=== PATIENT | male | born 1985 | race American Indian/Alaskan Native ===

== ENCOUNTER 2017-03-18 18:04 | Emergency (ER) | payer OTHER ==
[2017-03-18] MEDS ORDERED: TYLENOL PO ONE (18:47)
[2017-03-18 19:21] LABS: Basophils % (Auto) 0.2 % (0.0-1.8); Hematocrit 40.1 % (35.5-45.6); Hemoglobin 13.5 gm/dl (11.8-15.2); Mean Corpuscular HGB Conc 34 % (32-34); Mean Corpuscular Hemoglobin 30 pg (28-32); Mean Corpuscular Volume 88 fl (84-94); Platelet Count 138 K/mm3 (140-440); Red Blood Count 4.57 M/mm3 (3.65-5.03); Red Cell Distribution Width 13.4 % (13.2-15.2); White Blood Count 9.2 K/mm3 (4.5-11.0)
[2017-03-18 19:32] LABS: Alanine Aminotransferase 26 units/L (7-56); Albumin/Globulin Ratio 0.9 %; Alkaline Phosphatase 58 units/L (35-129); Anion Gap 20 mmol/L; BUN/Creatinine Ratio 13.07; Blood Urea Nitrogen 17 mg/dL (9-20); Calcium 8.7 mg/dL (8.4-10.2); Carbon Dioxide 22 mmol/L (22-30); Glucose 112 mg/dL (75-100); Lipase 15 units/L (13-60); Potassium 3.7 mmol/L (3.6-5.0); Sodium 138 mmol/L (137-145); Total Protein 8.5 g/dL (6.3-8.2)
[2017-03-19] MEDS ORDERED: DILAUDID IV ONE ×2 (02:27→04:08)
[2017-03-19] MEDS ORDERED: TORADOL IV ONE (02:27)
[2017-03-19] MEDS ORDERED: ZOFRAN IV ONE (02:27)
[2017-03-19] MEDS ORDERED: NACL 0.9% 1000 ML 1,000 ML IV ONE ×2 (02:27→02:29)
--- NOTE | 2017-03-19 03:37 | Emergency Department Report ---
ED N/V/D HPI - General Chief complaint: Nausea/Vomiting/Diarrhea Stated complaint: N/V/D/CHILLS Time Seen by Provider: 03/19/17 01:58 Source: patient Mode of arrival: Ambulatory Limitations: No Limitations - History of Present Illness Initial comments: 31-year-old male with past medical history HIV/AIDS presents to the hospital complaints of nausea, vomiting, diarrhea, and generalized body aches for 3 days. Patient has not been able to eat or drink anything secondary symptoms. Denies abdominal pain. Patient is unsure of his CD4 count but does take antibodies prophylactically to prevent opportunistic infections (not bactrim). Patient is not currently on any HIV treatment but has a upcoming appointment with infectious disease Dr. Cano group to restart medication. Patient denies recent travel, sick contacts, hematochezia, hematemesis, melena, and did receive a flu test this season - Related Data Home Medications Medication Instructions Recorded Confirmed Last Taken Elvitegr/Cobicist/Emtric/Tenof 1 each PO DAILY 01/01/15 01/31/15 01/29/15 09:00 [Stribild Tablet] Azithromycin [Zithromax TAB] 600 mg PO QWEEK 01/31/15 01/31/15 01/26/15 09:00 Sulfamethoxazole/Trimethoprim 1 tab PO QDAY 01/31/15 01/31/15 01/26/15 09:00 [Bactrim DS] Previous Rx's Medication Instructions Recorded Last Taken Type HYDROcodone/APAP 5-325 [[place] 1 each PO Q6HR PRN #20 tablet 03/19/17 Unknown Rx 5/325] Ibuprofen [Motrin] 800 mg PO Q8HR PRN #30 tablet 03/19/17 Unknown Rx Nitrofurantoin [place]/M-Cryst 100 mg PO Q12HR #14 capsule 03/19/17 Unknown Rx [Macrobid CAP] Ondansetron [Zofran Odt] 4 mg PO Q8HR PRN #20 tab.rapdis 03/19/17 Unknown Rx Allergies Allergy/AdvReac Type Severity Reaction Status Date / Time morphine Allergy Vomiting Verified 01/31/15 08:35 ED Review of Systems ROS: Stated complaint: N/V/D/CHILLS Other details as noted in HPI Comment: All other systems reviewed and negative Other: Constitutional: As per HPI Eyes: No eye pain visual changes ENT: Dry mouth Neck: Denies pain Respiratory: Denies cough wheezing shortness of breath Cardiovascular: Denies chest pain, palpitations, syncope GI: As per HPI : Denies dysuria Musculoskeletal: Denies back pain, Skin: Denies rash, lesions, erythema Neurologic: Denies headache, numbness, weakness Psychiatric: Denies suicidal ideation, hallucinations ED Past Medical Hx - Past Medical History Hx HIV: Yes - Social History Smoking Status: Never Smoker Substance Use Type: Alcohol - Medications Home Medications: Home Medications Medication Instructions Recorded Confirmed Last Taken Type Elvitegr/Cobicist/Emtric/Tenof 1 each PO DAILY 01/01/15 01/31/15 01/29/15 09:00 History [Stribild Tablet] Azithromycin [Zithromax TAB] 600 mg PO QWEEK 01/31/15 01/31/15 01/26/15 09:00 History Sulfamethoxazole/Trimethoprim 1 tab PO QDAY 01/31/15 01/31/15 01/26/15 09:00 History [Bactrim DS] HYDROcodone/APAP 5-325 [[place] 1 each PO Q6HR PRN #20 tablet 03/19/17 Unknown Rx 5/325] Ibuprofen [Motrin] 800 mg PO Q8HR PRN #30 tablet 03/19/17 Unknown Rx Nitrofurantoin [place]/M-Cryst 100 mg PO Q12HR #14 capsule 03/19/17 Unknown Rx [Macrobid CAP] Ondansetron [Zofran Odt] 4 mg PO Q8HR PRN #20 tab.rapdis 03/19/17 Unknown Rx ED Physical Exam - General Limitations: No Limitations - Other Other exam information: General: No limitations, patient is alert in no acute distress Head exam: Atraumatic, normocephalic Eyes exam: Normal appearance ENT: White plaque to tongue Neck exam: Normal inspection, full range of motion, no meningismus nontender Respiratory exam: Clear to auscultation bilateral, no wheezes, rales, crackles Cardiovascular: Normal rate and rhythm, normal heart sounds Abdomen: Soft, nondistended, and nontender, with normal bowel sounds, no rebound, or guarding Extremity: Full range of motion normal inspection no deformity Back: Normal Inspection, full range of motion, no tenderness Neurologic: Alert, oriented x3, cranial nerves intact, no motor or sensory deficit Psychiatric: normal affect, normal mood Skin: Warm, dry, intact ED Course Vital Signs 03/18/17 03/18/17 03/19/17 18:42 19:10 00:48 Temperature 102.0 F H 98.6 F Pulse Rate 110 H 94 H Respiratory 20 18 18 Rate Blood Pressure 103/64 103/68 Blood Pressure [Left] O2 Sat by Pulse 98 97 Oximetry 03/19/17 03/19/17 01:02 01:03 Temperature 98.4 F Pulse Rate 80 Respiratory 18 18 Rate Blood Pressure Blood Pressure 111/70 [Left] O2 Sat by Pulse 100 100 Oximetry ED Medical Decision Making - Lab Data Result diagrams: 03/18/17 18:53 03/18/17 18:53 Lab Results 03/18/17 03/18/17 03/19/17 Range/Units 18:53 18:53 03:51 WBC 9.2 (4.5-11.0) K/mm3 RBC 4.57 (3.65-5.03) M/mm3 Hgb 13.5 (11.8-15.2) gm/dl Hct 40.1 (35.5-45.6) % MCV 88 (84-94) fl MCH 30 (28-32) pg MCHC 34 (32-34) % RDW 13.4 (13.2-15.2) % Plt Count 138 L (140-440) K/mm3 Lymph % (Auto) 15.6 (13.4-35.0) % Lake % (Auto) 10.7 H (0.0-7.3) % Eos % (Auto) 0.0 (0.0-4.3) % Baso % (Auto) 0.2 (0.0-1.8) % Lymph # 1.4 (1.2-5.4) K/mm3 Lake # 1.0 H (0.0-0.8) K/mm3 Eos # 0.0 (0.0-0.4) K/mm3 Baso # 0.0 (0.0-0.1) K/mm3 Seg Neutrophils % 73.5 H (40.0-70.0) % Seg Neutrophils # 6.8 (1.8-7.7) K/mm3 Sodium 138 (137-145) mmol/L Potassium 3.7 (3.6-5.0) mmol/L Chloride 100.0 (98-107) mmol/L Carbon Dioxide 22 (22-30) mmol/L Anion Gap 20 mmol/L BUN 17 (9-20) mg/dL Creatinine 1.3 (0.8-1.5) mg/dL Estimated GFR > 60 ml/min BUN/Creatinine Ratio 13.07 % Glucose 112 H (75-100) mg/dL Calcium 8.7 (8.4-10.2) mg/dL Total Bilirubin 1.0 (0.1-1.2) mg/dL AST 22 (5-40) units/L ALT 26 (7-56) units/L Alkaline Phosphatase 58 (35-129) units/L Total Protein 8.5 H (6.3-8.2) g/dL Albumin 4.0 (3.9-5) g/dL Albumin/Globulin Ratio 0.9 % Lipase 15 (13-60) units/L Urine Color Isabell (Yellow) Urine Turbidity Clear (Clear) Urine pH 5.0 (5.0-7.0) Ur Specific [place] 1.034 H (1.003-1.030) Urine Protein 100 mg/dl (Negative) mg/dL Urine Glucose (UA) Neg (Negative) mg/dL Urine Ketones Tr (Negative) mg/dL Urine Blood Sm (Negative) Urine Nitrite Neg (Negative) Urine Bilirubin Neg (Negative) Urine Urobilinogen < 2.0 (<2.0) mg/dL Ur Leukocyte Esterase Neg (Negative) Urine WBC (Auto) 15.0 H (0.0-6.0) /HPF Urine RBC (Auto) 10.0 (0.0-6.0) /HPF U Epithel Cells (Auto) 1.0 (0-13.0) /HPF Urine Bacteria (Auto) 1+ (Negative) /HPF Urine Mucus 3+ /HPF - Medical Decision Making plan to d/c pt home. Symptoms improved ED treatment. Urine showed leukocytosis and will be treated for UTI. Patient tolerating by mouth intake. Blood and cultures pending at disposition. ID follow-up encouraged - Differential Diagnosis HIV, AIDS, gastroenteritis, sepsis Critical Care Time: No Critical care attestation.: If time is entered above; I have spent that time in minutes in the direct care of this critically ill patient, excluding procedure time. ED Disposition Clinical Impression: Viral gastroenteritis, AIDS, UTI (urinary tract infection), Dehydration Disposition: DISCHARGED TO HOME OR SELFCARE Is pt being admited?: No Does the pt Need Aspirin: No Condition: Stable Instructions: Gastroenteritis (ED), Human Immunodeficiency Virus Infection (ED) , Urinary Tract Infection in Men (ED) Additional Instructions: Take the medication as prescribed. Return if symptoms worsen. Follow up with your infectious disease (ID) [facility] Prescriptions: HYDROcodone/APAP 5-325 [[place] 5/325] 1 each PO Q6HR PRN #20 tablet PRN Reason: Pain Ibuprofen [Motrin] 800 mg PO Q8HR PRN #30 tablet PRN Reason: Pain Nitrofurantoin [place]/M-Cryst [Macrobid CAP] 100 mg PO Q12HR #14 capsule Ondansetron [Zofran Odt] 4 mg PO Q8HR PRN #20 tab.rapdis PRN Reason: Nausea And Vomiting Referrals: PRIMARY CARE,MD [Primary Care Provider] - 3-5 Days your, ID md [Other] - 3-5 Days Time of Disposition: 05:53
[2017-03-19 04:29] LABS: Bacteria,Urine 1+ /HPF (Negative); Bilirubin,Urine NEG (Negative); Blood,Urine SM (Negative); Ketones,Urine TR mg/dL (Negative); Leukocyte Esterase,Urine NEG (Negative); Mucus,Urine 3+ /HPF; Nitrite,Urine NEG (Negative); Urobilinogen,Urine < 2.0 mg/dL (<2.0)
[2017-03-19] MEDS ORDERED: MACROBID PO ONE (05:46)
[2017-03-19 06:18] VITALS: BP 111/60
== END 2017-03-19 06:19 | disposition home or self-care (01) ==
LOC: ED 18:04
DX: A08.4 Viral intestinal infection, unspecified (principal); B20 Human immunodeficiency virus [HIV] disease; N39.0 Urinary tract infection, site not specified; E86.0 Dehydration; Z88.6 Allergy status to analgesic agent
CPT/HCPCS: 36415; 80053; 81001; 83690; 85025; 87040; 87086; 87400; 96361; 96374; 96375; 96376; 99283; J1170; J1885; J2405; J7030